=== PATIENT | male | born 1970 | race Caucasian/White ===

== ENCOUNTER → 2024-11-25 | Outpatient (CLI) | payer BC, SELFPAY ==
--- NOTE | 2024-11-25 08:35 | XR_ITS ---
Examination: Foot, right, 3 views Technique: AP, oblique, lateral views foot, 3 views Date and time of exam: November 25, 2024 0901 hours INDICATIONS: Redness swelling and pain involving the first digit beginning one week ago and heel pain since June 2024 FINDINGS: Soft tissue swelling about the first digit No john cortical bone destruction 3 mm plantar bony calcaneal spur IMPRESSION: No john cortical bone destruction Consider MRI foot without contrast follow-up
== END | disposition home or self-care (01) ==
LOC: COPL 08:32 → CDIM 12-01 07:01
PROVIDERS: PCP Family Medicine; Referring Provider Podiatrist Foot & Ankle Surgery; Visit Provider Podiatrist Foot & Ankle Surgery
DX: L02.611 Cutaneous abscess of right foot (principal)
CPT/HCPCS: 73630

== ENCOUNTER 2025-06-28 10:14 | Outpatient (AMB) | payer BC, SELFPAY ==
--- NOTE | 2025-06-28 10:43 | ORTHONT_ITS ---
Vital signs 06/28/25 10:44 Height 1.91 m Height Method Stated Weight 126.694 kg Weight Measurement Method Standing Scale BMI 34.9 BP 125/86 H Blood Pressure Source Automatic Cuff Blood Pressure Location Left Upper Arm Position Sitting Respiration 19 Pulse 96 Pulse Source Monitor Temp 97.9 F Temp Source Temporal Artery Scan Pulse Oximetry (%) 95 Oxygen Delivery Method Room Air Med/Allergies Allergies & Medications Allergies No Known Allergies Allergy (Verified 06/28/25 10:44) Medication Reconciliation meloxicam 7.5 mg tablet 7.5 mg PO QDAY #45 tabs 06/28/25 [Rx] prednisone 5 mg tablet 5 mg PO DIRECTED 06/28/25 [History Confirmed 06/28/25] Exam Exam Patient is in no acute distress and is cooperative with the examination today. Breathing is nonlabored. In no respiratory distress. Patient has no paraspinal tenderness. Spinal deformity cannot be appreciated. The gait of the patient is nonantalgic Bilateral extremities were evaluated and demonstrates sensation intact to light touch. Palpable pedal pulses are present. No significant edema is present. Bilateral knees were examined and the patient has full strength and range of motion.. The right hip was examined. Patient was able to flex to 90 degrees, adduct to 30 degrees, abduct to 40 degrees, internally rotate to 20 degrees, and externally rotate to 20 degrees. Patient has a negative logroll. Stinchfield is negative. The patient is nontender diffusely to touch. The left hip was examined. Patient was able to flex to 90 degrees, adduct to 30 degrees, abduct to 40 degrees, internally rotate to 10 degrees, and externally rotate to 20 degrees. Patient has a negative logroll. The stinchfield is positive. Assessment and Plan Problem List (1) Arthritis of left hip: Status: Acute Plan: ASSESSMENT AND PLAN 1. Severe osteoarthritis of the left hip. Significant pain in the left hip radiates down to the knee. Previous treatments included a cortisone injection in the buttocks and prednisone, which provided temporary relief. Physical therapy was attempted but did not result in significant progress. An x-ray from [facility] indicates severe osteoarthritis with [id number] contact. Meloxicam has been prescribed to be taken for 1 to 2 weeks. An x-ray of the hip will be ordered to confirm the diagnosis. Prednisone use is advised against. If there is no improvement with meloxicam, an intra-articular hip injection will be considered. If these measures fail to provide sufficient relief, hip replacement surgery may be contemplated. Follow-up: 4 weeks. Office Procedures GNS Level of Care Nursing/Assessment Patient Status: Initial/New Patient Nursing Assessment/Reassesment: Medication Reconciliation, Update PMH in EMR and Vital Signs Coordination of Care: Complex Care and Chronic Disease 1-5, Education Complex Pt/Fam, Consent,records obtained, informed consent, 1 Ins Authorization, Lab and Imaging orders, Results/Orders obtained and Staff clarify orders New Patient Charge New Patient Point Assignment: 1124 New Patient Point Charge: LITHOGRAPHIC ETCHER Level 4 ([id number]) MA Intake Visit Data Collection New Patient or Established: New Patient (never been to [facility]) Reason for Visit:: OA LEFT HIP Seen by Clinical Staff ONLY (RN/MA): No 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 PCP or OBGYN visit in last 3 months: Yes Hx Now: No Do You Feel Safe at Home: Yes Authorities Contacted: N/A Questionairres Past Medical History Past Medical History Have you ever been diagnosed with any of the following: Subjective Visit Visit for: new patient and hip (LEFT) Immunization / Flu Flu Vaccine in the Last 12 Months: No Flu Vaccine Exclusion Criteria: Refused by Patient History of Present Illness Chief complaint: OA LEFT HIP Date of injury / onset of symptoms: 3-5 YERAS HISTORY OF PRESENT ILLNESS I, Stephen Orta, have obtained verbal consent from the patient, to be recorded during this encounter which may include, but not limited to, medical history, examination, treatment plans, and relevant health information.? Patient was informed that recording will be read and reviewed by myself before inclusion in the medical chart. The patient is a 54-year-old male who presents for evaluation of osteoarthritis of the left hip. He has been experiencing intermittent pain in his left hip for the past 3 to 5 years. The pain is predominantly lateral and radiates down towards the knee. He also reports groin pain that occasionally extends down the front of his leg, terminating at the knee. He has no other medical conditions such as diabetes, cholesterol issues, high blood pressure, or heart problems. The pain intensifies during ambulation. He has not received any injections directly into the hip. He underwent x-rays at [facility] approximately 3 months ago but did not bring the correct disk to this appointment. He has attempted self-management strategies including stretching exercises, the use of a butt pad, and bracing his feet during sleep. He has also tried various vitamins and supplements such as turmeric and raspberry. A cortisone injection was administered in the buttocks, providing temporary relief for about 15 days. However, he experienced difficulty walking for a day and a half following the injection. Subsequently, he was prescribed prednisone by another physician, with juany marking the completion of his course. He has also completed 9 sessions of physical therapy, which provided some relief but did not result in significant progress. 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
[2025-06-28 10:44] VITALS: BP 125/86; PULSE 96; RESP 19; TEMP 36.6; O2SAT 95; BMI 34.9
--- NOTE | 2025-06-28 10:52 | XR_ITS ---
Examination: Left hip AP, lateral, AP pelvis 3 views Technique: Hip AP lateral, AP pelvis, 3 views Exam date and time: June 28, 2025, 1110 hours INDICATIONS: Left hip pain 5 years getting worse. FINDINGS: Advanced left hip osteoarthritis Marked hip joint space narrowing and subarticular sclerosis Moderate narrowing right hip joint Bones of the pelvis intact IMPRESSION: Advanced left hip osteoarthritis.
== END 2025-06-28 10:57 | disposition home or self-care (01) ==
LOC: HODSRG 10:14
PROVIDERS: PCP Family Medicine; Referring Provider Family Medicine; Supervising Provider Orthopaedic Surgery Adult Reconstructive Orthopaedic Surgery; Visit Provider Orthopaedic Surgery Adult Reconstructive Orthopaedic Surgery
DX: M16.12 Unilateral primary osteoarthritis, left hip (principal); M25.552 Pain in left hip
CPT/HCPCS: 73502; 99204; G0463

== ENCOUNTER 2025-07-26 10:54 | Outpatient (AMB) | payer BC, SELFPAY ==
[2025-07-26 11:03] VITALS: BP 151/94; PULSE 105; RESP 18; TEMP 36.3; O2SAT 94; BMI 36.2
--- NOTE | 2025-07-26 11:03 | ORTHONT_ITS ---
Vital signs 07/26/25 11:03 Height 1.91 m Height Method Stated Weight 132.137 kg Weight Measurement Method Standing Scale BMI 36.2 BP 151/94 H Blood Pressure Source Automatic Cuff Blood Pressure Location Left Upper Arm Position Sitting Respiration 18 Pulse 105 H Pulse Source Monitor Temp 97.4 F Temp Source Temporal Artery Scan Pulse Oximetry (%) 94 L Oxygen Delivery Method Room Air Med/Allergies Allergies & Medications Allergies No Known Allergies Allergy (Verified 07/26/25 11:04) Medication Reconciliation meloxicam 7.5 mg tablet 7.5 mg PO QDAY #45 tabs 06/28/25 [Rx Confirmed 07/26/25] prednisone 5 mg tablet 5 mg PO DIRECTED 06/28/25 [History Confirmed 07/26/25] Exam Exam Patient is in no acute distress and is cooperative with the examination today. Breathing is nonlabored. In no respiratory distress. Patient has no paraspinal tenderness. Spinal deformity cannot be appreciated. The gait of the patient is nonantalgic Bilateral extremities were evaluated and demonstrates sensation intact to light touch. Palpable pedal pulses are present. No significant edema is present. Bilateral knees were examined and the patient has full strength and range of motion.. The right hip was examined. Patient was able to flex to 90 degrees, adduct to 30 degrees, abduct to 40 degrees, internally rotate to 20 degrees, and externally rotate to 20 degrees. Patient has a negative logroll. Stinchfield is negative. The patient is nontender diffusely to touch. The left hip was examined. Patient was able to flex to 90 degrees, adduct to 30 degrees, abduct to 40 degrees, internally rotate to 10 degrees, and externally rotate to 20 degrees. Patient has a negative logroll. The stinchfield is positive. X-rays demonstrate severe arthritis of the left hip with complete joint space narrowing Assessment and Plan Problem List (1) Arthritis of left hip: Status: Acute Plan: ASSESSMENT AND PLAN 1. Severe osteoarthritis of the left hip. Significant pain in the left hip radiates down to the knee. He has severe arthritis of the left hip. We discussed total hip replacement as a reasonable option. He reports that his work offers of benefit. He noticed [facility] in [place] for a 3 hip replacement. I told him if he does not hear he probably will have to reach his deductible. He is going to look into this. He will call us when he decides. We discussed total hip replacement in great detail Follow-up: 4 weeks. Office Procedures GNS Level of Care Nursing/Assessment Patient Status: Established Patient Nursing Assessment/Reassesment: Medication Reconciliation, Update PMH in EMR and Vital Signs Coordination of Care: Complex Care and Chronic Disease 1-5, Education Complex Pt/Fam, Consent,records obtained, informed consent, Results/Orders obtained and Staff clarify orders Established Patient Charge Established Patient Point Assignment: 95 Established Patient Point Charge: EP Level 3 (80-115) MA Intake Visit Data Collection New Patient or Established: Established Patient (seen at [facility] within 3 years) Reason for Visit:: OA LEFT HIP/XRAYS Seen by Clinical Staff ONLY (RN/MA): No Switchboard Receptionist Required: No PCP or OBGYN visit in last 3 months: Yes Hx Now: No Do You Feel Safe at Home: Yes Authorities Contacted: N/A Questionairres Past Medical History Past Medical History Have you ever been diagnosed with any of the following: Subjective Visit Visit for: follow up visit, hip (LEFT) and x-rays (RESULTS) Immunization / Flu Flu Vaccine in the Last 12 Months: No Flu Vaccine Exclusion Criteria: Refused by Patient History of Present Illness Chief complaint: OA LEFT HIP Date of injury / onset of symptoms: 3-5 YERAS HISTORY OF PRESENT ILLNESS I, Stephen Orta, have obtained verbal consent from the patient, to be recorded during this encounter which may include, but not limited to, medical history, examination, treatment plans, and relevant health information.? Patient was informed that recording will be read and reviewed by myself before inclusion in the medical chart. The patient is a 54-year-old male who presents for evaluation of osteoarthritis of the left hip. He has been experiencing intermittent pain in his left hip for the past 3 to 5 years. The pain is predominantly lateral and radiates down towards the knee. He also reports groin pain that occasionally extends down the front of his leg, terminating at the knee. He has no other medical conditions such as diabetes, cholesterol issues, high blood pressure, or heart problems. The pain intensifies during ambulation. He has not received any injections directly into the hip. He underwent x-rays at [facility] approximately 3 months ago but did not bring the correct disk to this appointment. He has attempted self-management strategies including stretching exercises, the use of a butt pad, and bracing his feet during sleep. He has also tried various vitamins and supplements such as turmeric and raspberry. A cortisone injection was administered in the buttocks, providing temporary relief for about 15 days. However, he experienced difficulty walking for a day and a half following the injection. Subsequently, he was prescribed prednisone by another physician, with juany marking the completion of his course. He has also completed 9 sessions of physical therapy, which provided some relief but did not result in significant progress. 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
== END 2025-07-26 11:33 | disposition home or self-care (01) ==
LOC: HODSRG 10:54
PROVIDERS: PCP Family Medicine; Referring Provider Family Medicine; Supervising Provider Orthopaedic Surgery Adult Reconstructive Orthopaedic Surgery; Visit Provider Orthopaedic Surgery Adult Reconstructive Orthopaedic Surgery
DX: M16.12 Unilateral primary osteoarthritis, left hip (principal); Z28.21 Immunization not carried out because of patient refusal
CPT/HCPCS: 99213; G0463